=== PATIENT | female | born 1970 | race Caucasian/White ===

== ENCOUNTER → 2019-09-17 | Outpatient (CLI) | payer MEDICARE, BC ==
[~2019-09-17] MED LIST: Diatrizoate Meglumine/Diatrizoate Sodium 37% 30 ML Bottle PO ONE; Iopamidol 755 Mg/ML 100 ML Bottle IV ONE
== END ==
LOC: FB.DI 07:59
PROVIDERS: ATTEND Family Medicine
DX: N28.1 Cyst of kidney, acquired (principal)
CPT/HCPCS: 74170; Q9963; Q9967